=== PATIENT | male | born 1985 | race Caucasian/White ===

== ENCOUNTER 2022-02-06 16:20 | Emergency (ER) | payer SELFPAY ==
--- NOTE | ~2022-02-06 | CT_ITS ---
CT OF bilateral heels EXAMINATION: CT heel RT wo con, CT heel LT wo con DATE: 02/06/2022 17:34 (accession [id number]), 02/06/2022 17:33 (accession [id number]) INDICATION: TECHNIQUE: Computed tomography (CT) of the bilateral heels was performed without intravenous contrast . Automated exposure control and iterative reconstruction technique were employed. The dose-length pr oduct was 406.91 (accession [id number]), 383.71 (accession [id number]) mGy-cm. COMPARISON: Radiograph, same date FINDINGS: Limitations: None Bones: Right calcaneus: Comminuted, nondisplaced fractures of the right calcaneus, including a minimally imp acted portion in the posterior medial aspect of the calcaneus and fracture lines on the medial and la teral aspects of the bone, that extend to the anterior subtalar joint. Nondisplaced anterior calcanea l process fracture. Left calcaneus: Comminuted fracture of the left calcaneus, with overall tongue-type morphology, with fracture extension to the posterior subtalar joints. Nondisplaced anterior calcaneal process fracture . No significant distraction or displacement. No other fractures detected in the remaining bones of the bilateral ankles and feet. Soft Tissues:Posterior hindfoot soft tissue swelling bilaterally. Fluid: No significant fluid within the joint capsule or surrounding bursal spaces. IMPRESSION: Comminuted tongue type fracture of the left calcaneus, with extension to the posterior subtalar joint , without significant distraction. Comminuted minimally impacted fracture of the right calcaneus, wit h extension to the anterior subtalar joint. Reviewed, dictated and finalized at location K. IMPRESSION: Comminuted tongue type fracture of the left calcaneus, with extension to the po sterior subtalar joint, without significant distraction. Comminuted minimally i mpacted fracture of the right calcaneus, with extension to the anterior subtala r joint.
--- NOTE | ~2022-02-06 | XR_ITS ---
EXAM: XR foot LT 2V, XR foot RT 2V, XR ankle RT min 3V, XR ankle LT min 3V DATE: 02/06/2022 16:56 (accession [id number]), 02/06/2022 16:57 (accession [id number]), 02/06 16:57 (accession [id number]), 02/06/2022 16:57 (accession [id number]) HISTORY: pain, jump off ladder, SWELLING/ PAIN TO PLANTER CALCANEUS . COMPARISON: None available. FINDINGS: Normal mineralization. Acute left calcaneal fracture, oriented roughly with the longitudin al axis of the bone, with 2-3 mm distraction, extending to the subtalar joints. Nondisplaced oblique fracture of the right calcaneus extending from the plantar surface to the subtalar joints. No other f racture detected in either ankle or foot. No lytic or blastic lesion. Joint spaces are maintained. No erosion or periosteal change. Soft tissues within normal limits. IMPRESSION: Bilateral intra-articular tongue type calcaneal fractures, with minimal distraction of th e fracture fragment in the left calcaneus. Reviewed, dictated and finalized at location K. IMPRESSION: Bilateral intra-articular tongue type calcaneal fractures, with min imal distraction of the fracture fragment in the left calcaneus. IMPRESSION: Bilateral intra-articular tongue type calcaneal fractures, with min imal distraction of the fracture fragment in the left calcaneus. IMPRESSION: Bilateral intra-articular tongue type calcaneal fractures, with min imal distraction of the fracture fragment in the left calcaneus.
[2022-02-06 16:28] VITALS: BP 148/91; PULSE 108; RESP 16; TEMP 36.9; O2SAT 100
--- NOTE | 2022-02-06 16:31 | WC.ED.TRAUMA ---
HPI - Trauma General Chief Complaint: Trauma Stated Complaint: 6 foot fall off ladder bilateral foot pain Time Seen by Provider: 02/06/22 16:26 History of Present Illness HPI narrative: Patient is a 36-year-old male presenting to the emergency department for evaluation of bilateral heel pain after he jumped off of a ladder from a height of 6 feet. Patient states that he was changing a light bulb, standing on the ladder that he felt the ladder began to move. Patient was worried that the ladder may fall to the ground, thus the patient jumped off of the ladder from a height of 6 feet. Patient reports landing on his feet with immediate popping pain in his bilateral lower ankle and upper foot with pain. Patient has been unable to ambulate secondary to pain. Pain is aching in nature, exacerbated with movement. Patient reports swelling of the bilateral ankles. He denies numbness. He denies lower back pain, bilateral knee pain, hip pain. He denies any head trauma or loss of consciousness. Patient denies nausea, vomiting, abdominal pain. Denies any chest pain, palpitations, shortness of breath. Related Data Allergies Allergy/AdvReac Type Severity Reaction Status Date / Time No Known Allergies Allergy Verified 02/06/22 16:36 Review of Systems Review of Systems: CONSTITUTIONAL: Denies fever, chills, or sweats. EYES: Denies visual changes, redness, or discharge. CARDIOVASCULAR: Denies chest pain, palpitations, or edema. RESPIRATORY: Denies cough or dyspnea. GASTROINTESTINAL: Denies abdominal pain, nausea, vomiting, or diarrhea. GENITOURINARY: Denies dysuria or hematuria. SKIN: Denies rash or itching. MUSCULOSKELETAL: Denies back pain, reports bilateral ankle, foot pain NEUROLOGIC: Denies headache, numbness, or weakness. PMFSH Social History Social History (Updated 02/06/22 @ 16:40 by Li Mansfield MD) Smoking status: Current every day smoker Tobacco type: cigarettes Alcohol intake: current Substance use: current Substance use type: marijuana Living arrangements: with family Gender identity (if verbalized by the patient): Male Exam Narrative: Nursing note and vitals reviewed. CONSTITUTIONAL: The patient appears well-developed and well-nourished. No distress. HEAD: Normocephalic and atraumatic. EYES: PERRL, EOMI, normal conjunctiva, anicteric EARS: External ears clear bilaterally, no hemotympanum MOUTH: OP clear, no erythema, exudates NECK: midline trachea, supple, FROM. No midline cervical spinal tenderness. No step-offs or deformities. CARDIOVASCULAR: Normal rate, regular rhythm, normal heart sounds and intact distal pulses. No murmurs, rubs, gallops. PULMONARY: Effort normal and breath sounds normal. No respiratory distress. The patient has no wheezes, rales, rhonchi. No chest wall tenderness, crepitus or ecchymoses. ABDOMINAL: Soft. Nontender, nondistended. No palpable masses. Pelvis is stable to anterior and lateral compression. Thorax: No midline thoracic or lumbar tenderness. No step-offs or deformities palpated. EXTREMITIES: moving all extremities symmetrically. -RUE: No deformity. Normal ROM at shoulder, elbow, wrist, and hand. Sensation intact M/U/R. Pulse 2+. -LUE: No deformity. Normal ROM at shoulder, elbow, wrist, and hand., Sensation intact M/U/R. Pulse 2+ -RLE: No deformity. Normal ROM at hip, knee. Decreased range of motion at the right ankle secondary to pain. Mild deformity of the forefoot. DP pulse 2+. Sensation intact distally. -LLE: No deformity. Normal ROM at hip, knee, ankle. Decreased range of motion at the right ankle secondary to pain. Mild deformity of the forefoot. DP pulse 2+ Sensation intact distally. NEUROLOGY: The patient is alert and oriented to person, place, and time. CN II-XII Course Vital Signs Vital signs: Vital Signs Temperature 36.9 C 02/06/22 16:28 Pulse Rate 108 H 02/06/22 16:28 Respiratory Rate 16 02/06/22 16:28 Blood Pressure 148/91 H 02/06/22 16:28
[2022-02-06] MEDS: SODIUM CHLORIDE 0.9% IV 1,000 ML 999 ML IV CONT (16:52)
[2022-02-06] MEDS: ONDANSETRON INJ 4 MG/2 ML VIAL IV PUSH (16:52)
[2022-02-06] MEDS: MORPHINE SULFATE (*CRX) 4 MG/ML INJ IV PUSH (16:52)
[2022-02-06 16:54] LABS: Basophils Percent Auto 0.2 % (0.2-1.2); Eosinophils Absolute Auto 0.1 K/mm3 (0-0.3); Eosinophils Percent Auto 0.7 % (0-4.4); Hematocrit 49.8 % (42.0-52.0); Hemoglobin 15.9 g/dL (14.0-18.0); Immature Granulocyte Percent A 0.6 % (0-0.5); Lymphocytes Absolute Auto 2.25 K/mm3 (0.9-3.2); Lymphocytes Percent Auto 13.4 % (18.3-44.2); Mean Corpuscular HGB Conc 31.9 g/dl (32-36); Mean Corpuscular Hemoglobin 26.1 pg (26-34); Mean Corpuscular Volume 81.6 fl (80-100); Mean Platelet Volume 11.8 fl (7.4-10.4); Monocytes Absolute Auto 0.8 K/mm3 (0.1-0.6); Monocytes Percent Auto 4.6 % (2.6-8.5); Neutrophils Absolute Auto 13.5 K/mm3 (1.3-6.7); Neutrophils Percent Auto 80.5 % (45.5-73.1); Platelet Count Result 228 k/mm3 (150-375); Red Cell Distribution Width 14.9 % (11.5-14.5); White Blood Count 16.8 K/mm3 (4.5-10.0)
[2022-02-06 17:00] LABS: Anion Gap 10 mmol/L (8-16); Blood Urea Nitrogen 15 mg/dL (9-20); Calcium 9.5 mg/dL (8.4-10.2); Carbon Dioxide 27 mmol/L (22-30); Chloride 105 mmol/L (98-107); Estimated CRCL calculation 109 ml/min; Estimated Glomerular Filt Rate > 60; Glucose 108 mg/dL (65-110); Potassium 3.6 mmol/L (3.4-5.0); Sodium 142 mmol/L (137-145)
[2022-02-06 18:07] VITALS: BP 154/94; PULSE 95; RESP 15; O2SAT 100
[2022-02-06 19:15] LABS: SARS-CoV-2 RNA PCR Positive
== END 2022-02-06 18:57 | disposition short-term general hospital (02) ==
PROVIDERS: Emergency Provider Emergency Medicine
DX: S92.002A Unspecified fracture of left calcaneus, initial encounter for closed fracture (principal); S92.001A Unspecified fracture of right calcaneus, initial encounter for closed fracture; F17.210 Nicotine dependence, cigarettes, uncomplicated; W11.XXXA Fall on and from ladder, initial encounter; U07.1 COVID-19
CPT/HCPCS: 29515; 36415; 73610; 73620; 73700; 80048; 85025; 96361; 96374; 96375; 99285; C9803; J2270; J2405; J7030; U0003; U0005